=== PATIENT | female | born 1985 | race Asian ===

== ENCOUNTER → 2021-07-26 08:09 | Outpatient (CLI) | payer OTHER, SELFPAY ==
[2021-07-26 22:45] LABS: Influenza A QL RT-PCR Negative (Negative); Influenza B QL RT-PCR Negative (Negative)
[2021-07-26 22:53] LABS: SARS-CoV-2 RNA PCR Positive
== END ==
PROVIDERS: PCP Family Medicine; Visit Provider Physician Assistant
DX: U07.1 COVID-19 (principal)
CPT/HCPCS: 87502; C9803; U0003; U0005

== ENCOUNTER 2023-09-16 15:25 | Outpatient (CLI) | payer OTHER, SELFPAY ==
--- NOTE | ~2023-09-16 | XR_ITS ---
EXAMINATION: XR chest 2V 09/16/2023 15:44 INDICATION: Cough PROCEDURE: 2 view chest COMPARISON: Comparison to multiple prior studies sequentially, with oldest reviewed study dated 01/08. FINDINGS: The lungs are clear. The cardiomediastinal silhouette is within normal limits. There are no pleural effusions. There is no pneumothorax suspected. IMPRESSION: 1: NO ACUTE CARDIOPULMONARY DISEASE. Reviewed, dictated and finalized at location A.
[2023-09-16 16:21] LABS: Influenza A QL RT-PCR Negative (Negative); Influenza B QL RT-PCR Negative (Negative); RSV RNA, RT-PCR Negative (Negative); SARS-CoV-2 RNA PCR Negative (Negative)
== END 2023-09-16 15:26 | disposition home or self-care (01) ==
PROVIDERS: PCP Family Medicine; Visit Provider Physician Assistant
DX: R05.9 Cough, unspecified (principal); R06.02 Shortness of breath; Z20.822 Contact with and (suspected) exposure to COVID-19
CPT/HCPCS: 71046; 87637

== ENCOUNTER 2025-01-17 01:24 | Day surgery (SDC) | payer OTHER, SELFPAY ==
[2025-01-12 15:35] VITALS: BMI 63.3
--- NOTE | 2025-01-12 15:44 | PC.NURSE ---
Addendum entered by Brandon Person RN 01/12/25 16:19: Correction day of surgery is 01-17-2025. Original Note: Report to the Outpatient Waiting Room, entrance under the green pavilion located off [facility], at time _0615_ on date _[id number]_. Planned Procedure Time: _0815_.? Time changes happen often and if your time is changed the preop area will call you the afternoon before. - You and your visitor will be asked to self-screen and do not enter if you have any COVID symptoms. Please call surgeon if you need to reschedule. - A mask is optional within the hospital at this time. Patients may have clear liquids (water, carbonated beverages, clear teas, apple juice) until 3 hours prior to surgery with a maximum of 20 ounces. - No food from midnight until time of surgery and no smoking, or chewing tobacco (or any form of nicotine). No chewing gum, candy or mints. Take only the following medications with a SIP of water on the morning of surgery: ___Amlodipine.____ Hold insulin until after surgery. DO NOT STOP ANY OF YOUR OTHER PRESCRIPTION MEDICATIONS PRIOR TO SURGERY EXCEPT THE FOLLOWING Hold all vitamins and supplements for 3 days per anesthesiologist. Medications to discontinue per physician Date to take last dose Please no make-up, nail german, hairspray, perfume, deodorant, or body powder the day of surgery.? No jewelry (including any body piercings) or valuables the day of surgery, leave them at home.? Please take a shower or bath the night before, or the morning of, surgery with an antibacterial soap.? Wear comfortable, loose fitting clothing.? - Jewelry must be removed prior to entering the operating room.? Rings and piercings that are not removed may be cut off. - The hospital will not accept responsibility for valuables.? - Please leave all valuables, including medications, at home the day of surgery. If you are going home after surgery, a licensed winch driver must drive you home.? - NO public transportation without another adult if you receive anesthesia. - We recommend that an adult stay with you for 24 hours following discharge. - We also recommend that you do not drive, make important decision, drink alcoholic beverages, or take any drugs that were not prescribed by your health care provider for at least 24 hours after your discharge time. Follow any additional instructions given to you from your surgeon. Telephone instructions given to __Ruthann___and asked if any additional questions and then verbalized understanding. Patient advised to call surgeon office or pre surgery nurse liaison [phone] if any additional questions.
--- OUTSIDE RECORDS SUMMARY | 2025-01-17 01:26 | XMS_ITS | Clinical Summary ---
Author Organization [facility] Address [facility] [place] [address] Care Team Providers Care Podiatric Foot And Ankle Specialist Name Role Phone Jared Shepard MD Primary Care Provider [phone] Allergies Active Allergy Reactions Criticality Noted Date Comments Cefaclor Rash Low 05/07/2023 Social History Tobacco Use Types Packs/Day Years Used Date Smoking Tobacco: Never Smokeless Tobacco: Never Tobacco Cessation:Counseling Given: Not Answered Alcohol Use Standard Drinks/Week Comments Never 0 (1 standard drink = 0.6 oz pur e alcohol) Comments No Sex and Gender Information Value Date Recorded Sex Assigned at Not on file Legal Sex Female 9:58 PM BLAST FURNACE HELPER Gender Identity Not on file Sexual Orientation Not on file Last Filed Vital Signs Vital Sign Reading Time Taken Comments Blood Pressure 165/88 05/07/2023 10:02 PM BLAST FURNACE HELPER Pulse 91 05/07/2023 10:02 PM BLAST FURNACE HELPER Temperature 36.1 C (97 F) 05/07/2023 10:02 PM BLAST FURNACE HELPER Respiratory Rate 20 05/07/2023 10:02 PM BLAST FURNACE HELPER Oxygen Saturation 100% 05/07/2023 10:02 PM BLAST FURNACE HELPER Inhaled Oxygen Concentration - - Weight 133.4 kg (294 lb) 05/07/2023 10:02 PM BLAST FURNACE HELPER Height 149.9 cm (4' 11) 05/07/2023 10:02 PM BLAST FURNACE HELPER Body Mass Index 59.38 05/07/2023 10:02 PM BLAST FURNACE HELPER Plan of Treatment Health Maintenance Due Date Last Done Comments Cervical Cancer Screening Pa p Smear (Age 30 to 64) Every 3 Years 1985 Annual Physical 09/05/1986 Hepatitis C 09/05/2001 DTaP, Tdap and Td Vaccines ( 1 - Tdap) 09/05/2002 Hepatitis B Vaccines (1 of 3 - 19+ 3-dose series) 09/05/2002 Cervical Cancer Screening Pa p with HPV Testing (Age 30 to 64) Every 5 Years 09/05/2013 Cervical Cancer Screening wi th HPV 09/05/2013 Mammogram Screening 2023 COVID-19 Vaccine (2023-2 5 season) 2024 07/15/2021, 12/02/2020, 11/11/2020 HPV Vaccines Aged Out No longer eligi ble based on patient's age to complete this topic Meningococcal B Vaccine Aged Out No l onger eligible based on patient's age to complete this topic Meningococcal Vaccine Aged Out No ary roberto eligible based on patient's age to complete this topic Pneumococcal Vaccine: Pediatrics (0 to 5 Years) and At-Risk Patients (6 to 49 Years) Aged Out No longer eligible b ased on patient's age to complete this topic RSV Immunizations Under 20 Months Aged Out No longer eligible b ased on patient's age to complete this topic Insurance Care Teams Podiatric Foot And Ankle Specialist Relationship Specialty Start Date End Date Jared Shepard MD [address] [place] [address] PCP - General FAMILY PRACTICE 05/07/23
--- OUTSIDE RECORDS SUMMARY | 2025-01-17 01:27 | XMS_ITS | Continuity of Care Document ---
Author Organization [facility] Address [address] [place] [id number] Insurance Providers Payer Plan Claims Address Claims Phone Policy Number Group Number Relation Employer Guarantor Name Guarantor Guarantor Address Guarantor Phone [facility] [address] [address], [place] [address] tel:[phone] [id number] Self Ruthann Grisel [address] [place], [place] [id number] Self Pay [id number] Self Ruthann Efraínhortencia [address] [place] [address] [facility] [id number] Self Ruthann Efraínhortencia [address] [place] [address] Problems Condition ICD9 code ICD10 code SNOMED code Start Date End Date S tatus Encounter for screening for other metabolic disorders Z13.228 Results No Results Allergies, adverse reactions, alerts No known allergies and adverse reactions Medications No administered medications reported Vital Signs No vital signs reported Social History No smoking Hx information available
[2025-01-17 06:15] VITALS: BP 147/93; PULSE 91; RESP 16; TEMP 37.3; O2SAT 100
[2025-01-17] MEDS: ACETAMINOPHEN 500 MG TABLET 1000 MG PO (06:49)
[2025-01-17 07:09] LABS: BEDSIDEPREGUCG Negative (Negative)
--- NOTE | 2025-01-17 07:11 | WPDHPUPDATE1 ---
History and Physical Update Update Date/Time: 01/17/25 07:11 History and Physical has been reviewed, including an updated exam of the patient. There are NO changes in the patient's condition. Risks, benefits, and alternatives have been discussed and questions answered. Patient agrees to proceed with pap under anesthesia, hysteroscopy/D&C.
[2025-01-17] MEDS: LACTATED RINGERS 1,000 ML 30 ML IV CONT (07:15)
--- NOTE | 2025-01-17 07:48 | WPDANESEPPF ---
Anes - Initial Pre Proc Eval Procedure: Operation Date: 01/17/25 08:15 Proposed Procedures p Hysteroscopy Dilation and Curettage - Kia Carmona MD Date/Time: 01/17/25 07:48 Surgeon: Kia Carmona MD Pre Op Diagnosis: Abnormal Uterine Bleeding Patient Data Age: 39 Gender: F Height: 1.5 m Weight: 144.6 kg Last Vital Signs Temp 37.3 C 01/17/25 06:15 Pulse 91 01/17/25 06:15 Resp 16 01/17/25 06:15 BP 147/93 H 01/17/25 06:15 Pulse Ox 100 01/17/25 06:15 O2 Del Method Room Air 01/17/25 06:15 Allergies Allergy/AdvReac Type Severity Reaction Status Date / Time Cephalosporins Allergy Mild rash Verified 01/17/25 07:04 cefaclor Allergy Unknown Rash Verified 01/17/25 07:04 Home Medications ?Medication ?Instructions ?Recorded ?Confirmed ?Type lancet with blood glucose test #300 ea 01/17/23 01/12/25 Rx strips and pen needles combo pack glucagon 3 mg/actuation nasal 3 mg intranasal ONCE #1 ea 04/24/23 01/12/25 Rx spray (Baqsimi) glucose 4 gram chewable tablet 4 g PO Q15M PRN hypoglycemia #90 04/24/23 01/12/25 Rx tabs lancets (Microlet Lancet) #200 ea 06/26/23 01/12/25 Rx albuterol sulfate 0.63 mg/3 mL 0.63 mg (3 mL) inhalation Q4-6H 08/22/23 01/12/25 Rx solution for nebulization PRN shortness of breath or wheezing #90 mL atorvastatin 20 mg tablet (Lipitor) 20 mg PO DAILY #90 tabs 02/29/24 01/17/25 Rx blood sugar diagnostic (Contour #400 ea 06/04/24 01/12/25 Rx Next Test Strips) insulin glargine 100 unit/mL (3 See Rx Instructions .Route 11/19/24 01/17/25 Rx mL) subcutaneous pen (Lantus .COMPLEX #21 mL Solostar U-100 Insulin) amlodipine 5 mg tablet 5 mg PO DAILY #90 tabs 12/20/24 01/17/25 Rx pen needle, diabetic 32 gauge x #100 ea 12/20/24 01/12/25 Rx /32 (Droplet Pen Needle) tirzepatide 10 mg/0.5 mL 10 mg (0.5 mL) subcut WEEKLY #2 mL 01/05/25 01/17/25 Rx subcutaneous pen injector (Mounjaro) Laboratory Tests 01/17/25 01/17/25 06:25 07:00 POC Capillary Glucose 113 H mg/dl (65-105) POC Urine HCG, Qual Negative (Negative) Patient hx anesthesia problems: none Family hx anesthesia problems: none Results Review: All pre-operative results and documents have been reviewed as part of the pre-operative evaluation. [facility] Past Medical History Medical History Hypertension Polycystic ovarian syndrome Asthma Long-term insulin use Diabetes mellitus with insulin therapy Hepatomegaly Hepatic steatosis Type 2 diabetes mellitus without complication, without long-term current use of insulin Surgical History Surgical History H/O sinus surgery Social History Social History Smoking status: Never smoker Second hand tobacco smoke exposure: No Alcohol intake: never Substance use: never Substance use type: does not use Current Housing: Decline to Answer Concerned About Future Housing: Decline to Answer Difficulty Paying Gas/Electric Bills: Decline to Answer Difficulty Paying for Meds: Decline to Answer Currently Unemployed: Decline to Answer Education: Decline to Answer Difficulty w/ Childcare or Family Care: Decline to Answer Living arrangements: with family Occupation/Education: occupation Gender identity (if verbalized by the patient): Female Sexual Orientation (if Verbalized by the Patient): Straight or Heterosexual Spiritual care concerns: No Anes - Eval Final PreProcedure Day of Procedure 01/17/25 07:48 Patient weight: super morbidly obese Heart: regular rate and rhythm Lungs: clear to auscultation Airway: Mallampati scale class II Neurological: alert and oriented Last oral intake: >/= 8 hours ASA classification: III Emergent: no Anesthetic plan: proceed Anesthesia type and monitoring: general GIVS and standard monitoring Results Review: All pre-operative results and documents have been reviewed as part of the pre-operative evaluation. Informed Consent: The patient's anesthetic plan and its attendant risks and benefits were discussed with the patient/family/POA. Questions were solicited and answers provided to the satisfaction of the patient/family/POA.
--- NOTE | 2025-01-17 09:10 | S_PTH ---
PATIENT: Ruthann Recinos LOC: [facility] U#:[id number] AGE/SX: 39/F ROOM: RE01/17/[address]: Kia Carmona MD : 1985 BED: DIS: 01/17/2025 SPEC #: [id number] RECD: 01/17/25 10:15 STATUS: DELLA RE #: [id number] ISAIAS: 01/17/25 09:[address]: Kia Carmona DEPT: [facility] Surgical RECD BY: Liza Reynoso ENTERED: 01/17/25 10:15 SP TYPE: Surgical OTHR DR: Jared Shepard MD Tissues: A - Endometrial Curettings Procedures: PAX-8 Hematoxylin and Eosin Stain Gross and Microscopic Level 4 P53 MLH1 MSH2 MSH6 PMS2 P16
[2025-01-17] MEDS: KETOROLAC 30 MG/ML VIAL (*BKC) IV PUSH (09:14)
--- NOTE | 2025-01-17 09:22 | P.OP_ITS ---
Procedure Note - Detailed Date of Procedure 01/17/25 Pre-op Diagnosis Abnormal Uterine Bleeding Post-op Diagnosis Same Procedure Performed Hysteroscopy with D&C Surgeon Kia Carmona MD Anesthesia MAC (with LMA) Indications Prolonged oligomenorrhea due to untreated PCOS/DM (a1c previously 12) that has lead to significant AUB for multiple months; RADIOLOGIC THERAPIST US showed endometrial strip of 3.5cm. Findings Normal appearing cervix. Uterus sounded to 9cm; profusely thickened, polypoid endometrium noted throughout the entire cavity, increased vascularity; unable to visualize a normal cavity even with significant removal of tissue via curettage. Good hemostasis at end of case. Fluid deficit: 300ml Description of Procedure Ruthann was taken to the operating room where she was placed under sedation without complications. A time-out was performed and no perioperative antibiotics were indicated. Using a disposable speculum, the cervix was easily identified and noted to be normal in appearance. The pap smear was collected without complications. She was then prepped and draped in the usual sterile fashion in the dorsal lithotomy position with her legs in low Vito stirrups. A bivalve speculum was placed within the vagina where the cervix was easily identified. The anterior lip of the cervix was grasped with a single-tooth tenaculum and the uterus was sounded. The cervix was then serially dilated to allow for the hysteroscope. The hysteroscope was advanced into the uterine cavity with the above findings noted. A curettage was then performed, using multiple pieces of Telfa, a significant amount of tissue was removed; large pieces of polyp vs tissue was noted to be removed with each swipe of the curette. The hysteroscope was once again advanced into the uterine cavity and a significant amount of poly poid tissue remained, still unable to visualize a normal cavity. Additional curettages were performed and thickened strips of tissue/polyps were removed. The hysteroscope was again advanced into the cavity and a more normal appearing cavity was noted but thickened tissue/polyps remained. A large sample was obtained for pathology and felt this was adequate for diagnosis. Good hemostasis was noted. All instruments were removed from the vagina. Sponge, lap, instrument, and needle counts were correct at the end of the procedure. Patient was awoken from anesthesia and taken to recovery with plans of same-day discharge home. Estimated Blood Loss 10 IV Fluids 800 Pathology Yes (endometrial curettings) Complications No immediate complications Condition Stable Disposition Same day [facility] Billing Surgery - Charge Forward: Surgery Billing
[2025-01-17 09:27] VITALS: BP 107/61; PULSE 86; RESP 16; O2SAT 100
[2025-01-17 09:55] VITALS: BP 114/64; PULSE 77; RESP 16; O2SAT 100
[2025-01-17 10:25] VITALS: BP 125/82; PULSE 82; RESP 16
== END 2025-01-17 10:24 | disposition home or self-care (01) ==
PROVIDERS: PCP Family Medicine; Visit Provider Obstetrics & Gynecology
PROC: 0U5B8ZZ Destruction of Endometrium, Via Natural or Artificial Opening Endoscopic (ICD-10-PCS; CPT 58563; principal; 2025-01-17 08:15)
DX: C54.1 Malignant neoplasm of endometrium (principal); E28.2 Polycystic ovarian syndrome; E11.9 Type 2 diabetes mellitus without complications; E66.01 Morbid (severe) obesity due to excess calories; Z68.44 Body mass index [BMI] 60.0-69.9, adult
CPT/HCPCS: 58558; 82948; 88305; 88342; A9270; J1885; J2003; J2250; J2405; J2704; J3010; J7030; J7120

== ENCOUNTER 2025-04-28 17:07 | Outpatient (CLI) | payer OTHER, SELFPAY ==
--- OUTSIDE RECORDS SUMMARY | 2025-04-28 17:10 | XMS_ITS | Clinical Summary ---
Author Organization [facility] Address [facility] [place] [address] Care Team Providers Care Taxicab Driver Name Role Phone Jared Shepard MD Primary Care Provider [phone] Allergies Active Allergy Reactions Criticality Noted Date [...] on file Legal Sex Female 9:58 PM PUMPER HELPER Gender Identity Not on file Sexual Orientation Not on file Last Filed Vital Signs Vital Sign Reading Time Taken Comments Blood Pressure 165/88 05/07/2023 10:02 PM PUMPER HELPER Pulse 91 05/07/2023 10:02 PM PUMPER HELPER Temperature 36.1 C (97 F) 05/07/2023 10:02 PM PUMPER HELPER Respiratory Rate 20 05/07/2023 10:02 PM PUMPER HELPER Oxygen Saturation 100% 05/07/2023 10:02 PM PUMPER HELPER Inhaled Oxygen Concentration - - Weight 133.4 kg (294 lb) 05/07/2023 10:02 PM PUMPER HELPER Height 149.9 cm (4' 11) 05/07/2023 10:02 PM PUMPER HELPER Body Mass Index 59.38 05/07/2023 10:02 PM PUMPER HELPER Plan of Treatment Health Maintenance Due Date Last Done Comments Cervical Cancer Screening Pa p Smear (Age 30 to 64) Every 3 Years 1983 Annual Physical 09/05/1986 Hepatitis C 09/05/2001 DTaP, Tdap and Td Vaccines ( 1 - Tdap) 09/05/2002 Hepatitis B Vaccines (1 of 3 - 19+ 3-dose series) 09/05/2002 HPV Vaccines (1 - 3-dose SCD M series) 09/05/2010 Cervical Cancer Screening Pa p with HPV Testing (Age 30 to 64) Every 5 Years 09/05/2013 Cervical Cancer Screening wi th HPV 09/05/2013 Mammogram Screening 2023 COVID-19 Vaccine (2024-2 6 season) 2025 07/15/2021, 12/02/2020, 11/11/2020 Influenza Adult (#1) 2025 04/04/2021, 04/27/2018, 03/08/2014 Hepatitis A Vaccines Aged Out No long er eligible based on patient's age to complete [...] to complete this topic Insurance Care Teams Taxicab Driver Relationship Specialty Start Date End Date Jared Shepard MD [address] [place] [address] PCP - General FAMILY PRACTICE 05/07/23
[2025-04-28 18:08] LABS: Influenza A QL RT-PCR Positive (Negative); Influenza B QL RT-PCR Negative (Negative); RSV RNA, RT-PCR Negative (Negative); SARS-CoV-2 RNA PCR Negative (Negative)
== END 2025-04-28 17:08 | disposition home or self-care (01) ==
LOC: ANHLAB 17:08
PROVIDERS: PCP Family Medicine; Visit Provider Physician Assistant
DX: J34.89 Other specified disorders of nose and nasal sinuses (principal); Z20.822 Contact with and (suspected) exposure to COVID-19
CPT/HCPCS: 87637

== ENCOUNTER 2025-05-10 12:20 | Outpatient (CLI) | payer OTHER, SELFPAY ==
--- NOTE | ~2025-05-10 | XR_ITS ---
Examination: XR chest 2V Clinical History: R05.9 - Cough, unspecified Comparison: 09/16/2023 Technique: PA and Lateral Findings: Cardiomediastinal silhouette normal size and configuration. Lungs clear. No acute bony abnormality. IMPRESSION: 1. No acute cardiopulmonary findings. Reviewed, dictated and finalized at location R. GE HELPER
== END 2025-05-10 12:21 | disposition home or self-care (01) ==
LOC: MICIMG 12:21
PROVIDERS: PCP Family Medicine; Visit Provider Physician Assistant
DX: R05.9 Cough, unspecified (principal); J45.901 Unspecified asthma with (acute) exacerbation; J10.1 Influenza due to other identified influenza virus with other respiratory manifestations
CPT/HCPCS: 71046